=== PATIENT | female | born 1995 | race African-American/Black ===

== ENCOUNTER 2017-05-04 19:45 | Emergency (ER) | payer OTHER ==
[~2017-05-04] VITALS: Ht 170.2 cm; Wt 90.7 kg
[~2017-05-04 19:45] MED LIST: CYCLOBENZAPRINE5 MG PO; HUMALOG100 UNIT/1 SUBQ; LANTUS SOL100 UNIT/1 SQ; LISINOPRIL5 MG PO; NAPROSYN500 MG PO
[2017-05-04 19:56] VITALS: BP 156/101
[2017-05-04] MEDS ORDERED: MOBIC15 MG PO (20:22)
== END 2017-05-04 20:37 | disposition home or self-care (01) ==
LOC: ER 19:45
DX: R51 Headache (principal); E11.9 Type 2 diabetes mellitus without complications; Z79.4 Long term (current) use of insulin; V49.50XA Passenger injured in collision with unspecified motor vehicles in traffic accident, initial encounter; Y93.89 Activity, other specified; Y92.89 Other specified places as the place of occurrence of the external cause; Y99.8 Other external cause status